=== PATIENT | female | born 1970 | race Caucasian/White ===

== ENCOUNTER 2019-03-22 23:08 | Emergency (ER) | payer OTHER ==
[2019-03-23] MEDS: DEXAMETHASONE 10 MG/ML 1 ML INJ IM (00:20)
[2019-03-23] MEDS: DIPHENHYDRAMINE 50 MG CAP PO (00:20)
[2019-03-23] MEDS: FAMOTIDINE 20 MG TAB PO (00:20)
== END 2019-03-23 00:28 | disposition home or self-care (01) ==
LOC: FTE 03-23 00:28
DX: L50.9 Urticaria, unspecified (principal)
CPT/HCPCS: 96372; 99284-25